=== PATIENT | male | born 1980 | race Caucasian/White ===

== ENCOUNTER → 2022-01-10 09:15 | Outpatient (BNVA) | payer OTHER, SELFPAY | PROVIDERS: Referring Provider Emergency Medicine Emergency Medical Services; Visit Provider Orthopaedic Surgery | DX: M54.50 Low back pain, unspecified (principal) | CPT/HCPCS: 72110 ==

== ENCOUNTER 2024-03-06 10:42 | Emergency (ER) | payer OTHER, SELFPAY ==
[2024-03-06 10:49] VITALS: BMI 37.1
[2024-03-06 10:51] VITALS: BP 134/87; PULSE 85; RESP 18; TEMP 36.7; O2SAT 96
--- NOTE | 2024-03-06 10:54 | ECG_ITS ---
[facility] Test Date: 2024-03-06 Pat Name: Chico Resendez Department: Room: Gender: Male [employer] Marker: : 1980 Requested By: Dipak York Order Number: [id number] [place] MD: Elise Zavaleta M.D. Measurements Intervals [place] Rate: 86 P: 17 AK: 155 QRS: -48 QRSD: 92 T: 12 QT: 367 QTc: 441 Interpretive Statements SINUS RHYTHM INCOMPLETE RIGHT BUNDLE BRANCH BLOCK [90+ ms QRS DURATION, TERMINAL R IN V1/V2, 40+ ms S IN I/aVL/V4/V5/V6] LEFT ANTERIOR FASCICULAR BLOCK [QRS AXIS <= -45, QR IN I, RS IN II] POSSIBLE ANTERIOR MYOCARDIAL INFARCTION , OF INDETERMINATE AGE [30 ms Q WAVE IN V3/V4, OR R < 0.2 mV IN V4] No previous ECG available for comparison Electronically Signed On 03-06-2024 23:55:04 CDT by Elise Zavaleta M.D. [id number]
--- NOTE | 2024-03-06 10:54 | XR_ITS ---
WS: [id number] Portable AP upright chest, 03/06/2024 Clinical Data: Chest pain Comparison: None. Findings: No nodules, masses or effusions are seen. The heart is normal. The pulmonary vascularity is not increased. No pneumonia or pneumothorax is seen. XR/XR chest 1V portable [id number] Impression: Negative chest.
--- NOTE | 2024-03-06 10:55 | W.ED.CHESTPA ---
HPI - Chest Pain General: Chief Complaint: Chest Pain Stated Complaint: chest pain, sob Time Seen by Provider: 03/06/24 10:54 Source: patient Mode of arrival: ambulatory History of Present Illness: 44-year-old male presents emergency room complaining of chest pain. States has had intermittently for the last couple of weeks has been getting progressively worse. He has a strong family history of heart disease as well. Non-smoker not diabetic. He had an episode of chest pain yesterday EMS was called reportedly had a normal EKG the patient declined transfer for further evaluation. This morning when he woke up he was still having chest pain and has worsened so he came to the emergency room. With the chest pain he has shortness of breath some diaphoresis radiation from the left side of the chest into the shoulder and arm MD complaint: chest pain Onset (ago): week(s) Timing of current episode: episodic Prior episodes: Yes Onset: during rest Pain location: left chest Pain radiation: left arm and left shoulder Severity: moderate Quality: tightness and heaviness Relieving factors: nothing Exacerbating factors: nothing Associated symptoms: Reports diaphoresis and nausea; Deny abdominal pain, dyspnea, fever(s), leg edema, palpitations, sense of impending doom, syncope or vomiting Treatment prior to arrival: none Review of Systems Const: Reports: diaphoresis; Denies: fever(s) or chills Card: Reports: chest pain; Denies: palpitations or syncope Resp: Denies: dyspnea GI: Reports: nausea; Denies: abdominal pain or vomiting : Denies: dysuria, urinary frequency or urinary urgency Musc: Denies: neck pain or back pain Skin/Breast: Denies: rash [facility] ED PFSH: Medical History Lumbar stenosis with neurogenic claudication Social History Smoking and tobacco/nicotine status: never used tobacco/nicotine Physical Exam Const: COMMON NORMALS: no acute distress GENERAL APPEARANCE: cooperative and comfortable ORIENTATION/CONSCIOUSNESS: Yes awake, Yes oriented to person, Yes oriented to place and Yes oriented to time HENMT: COMMON NORMALS: normocephalic, atraumatic and hearing grossly normal bilaterally HEAD & SCALP: normocephalic and atraumatic Resp: COMMON NORMALS: normal respiratory effort, No retractions, No use of accessory muscles and clear to auscultation bilaterally AUSCULTATION: clear to auscultation bilaterally Cardio: COMMON NORMALS: regular rate, regular rhythm and No murmurs present (Cardio) RATE: regular rate RHYTHM: regular rhythm GI: COMMON NORMALS: Soft to palpation and No hepatosplenomegaly present AUSCULTATION: Yes normoactive bowel sounds PALPATION: Yes Soft to palpation, No Tenderness to palpation present (GI), No Guarding due to palpation present (GI) and Yes No hepatosplenomegaly present Extremity: COMMON NORMALS: normal to inspection, capillary refill normal, no clubbing, cyanosis or edema, no calf tenderness and no pedal edema Neuro: SENSORIUM/ORIENTATION: Yes oriented to person, Yes oriented to place and Yes oriented to time Skin: COMMON NORMALS: no rashes or lesions noted GENERAL SKIN EXAM: no rashes or lesions noted Course Vital Signs: Vital signs: Vital Signs Temperature 98.0 F 03/06/24 10:51 Pulse Rate 80 03/06/24 14:30 Respiratory Rate 18 03/06/24 10:51 Blood Pressure 125/88 03/06/24 14:30 Pulse Oximetry 95 03/06/24 14:30 Oxygen Delivery Me thod Room Air 03/06/24 13:30 MDM - Chest Pain Medical Decision Making Labs and imaging reviewed EKG does not show any acute changes. The cardiac enzymes are trending negative. Will discharge patient home with Imdur 30 mg daily baby aspirin daily. Set up for a stress test as an outpatient. Medical Records I reviewed the patient's medical records. Lab Data I reviewed the patient's lab results. 03/06/24 11:04 03/06/24 11:42 Radiology Impressions Chest X-Ray 03/06/24 10:54 Impression: Negative chest. Laboratory Results WBC 7.98 10^3/uL (3.29-11.43) 03/06/24 11:04 RBC 4.88 10^6/uL (3.85-5.65) 03/06/24 11:04 Hgb 14.80 g/dL (11.27-16.99) 03/06/24 11:04 Hct 45.0 % (37-53) 03/06/24 11:04 MCV 92.2 fl (82-101) 03/06/24 11:04 MCH 30.3 pg (27-33) 03/06/24 11:04 MCHC 32.9 g/dL (30-55) 03/06/24 11:04 RDW 13.0 % (12.1-15.1) 03/06/24 11:04 Plt Count 256 10^3/cmm (157-399) 03/06/24 11:04 MPV 10.7 fL (7.4-10.4) H 03/06/24 11:04 Neut % (Auto) 55.8 % 03/06/24 11:04 Lymph % (Auto) 36.3 % 03/06/24 11:04 [place] % (Auto) 6.1 % 03/06/24 11:04 Eos % (Auto) 0.6 % 03/06/24 11:04 Baso % (Auto) 0.8 % 03/06/24 11:04 Neut # (Auto) 4.45 10^3/uL (1.8-7.7) 03/06/24 11:04 Lymph # (Auto) 2.9 10^3/uL (0.8-4.8) 03/06/24 11:04 [place] # (Auto) 0.5 10^3/uL (0.2-0.9) 03/06/24 11:04 Eos # (Auto) 0.1 10^3/uL (0.0-0.8) 03/06/24 11:04 Baso # (Auto) 0.1 10^3/uL (0.0-0.1) 03/06/24 11:04 Nucleated RBC % (auto) 0 % 03/06/24 11:04 Nucleated RBCs # 0.0 /100WBC 03/06/24 11:04 Sodium 137 mmol/L (136-145) 03/06/24 11:42 Potassium 4.2 mmol/L (3.5-5.1) 03/06/24 11:42 Chloride 98 mmol/L (98-107) 03/06/24 11:42 Carbon Dioxide 25 mmol/L (22-29) 03/06/24 11:42 Anion Gap 18.2 (5-19) 03/06/24 11:42 BUN 15 mg/dL (6-20) 03/06/24 11:42 Creatinine 0.7 mg/dL (0.7-1.2) 03/06/24 11:42 GFR Calculation 121.4 mL/min (90-130) 03/06/24 11:42 Glucose 84 mg/dL (65-115) 03/06/24 11:42 Calculated Osmolality 284 mOsm/kg (285-295) L 03/06/24 11:42 Calcium 9.4 mg/dL (8.5-10.5) 03/06/24 11:42 Total Bilirubin 0.4 mg/dL (0.15-1.2) 03/06/24 11:42 AST 26 U/L (0-40) 03/06/24 11:42 ALT 32 U/L (0-41) 03/06/24 11:42 Alkaline Phosphatase 63 U/L (40-130) 03/06/24 11:42 Troponin T Baseline 7 ng/L (0-15) 03/06/24 11:42 Troponin T 120 Minute 6.60 ng/L (0-15) 03/06/24 13:40 Delta Troponin T -0.40 ABS# (0-10) L 03/06/24 13:40 Total Protein 7.9 g/dL (6.6-8.7) 03/06/24 11:42 Albumin 4.6 g/dL (3.5-5.2) 03/06/24 11:42 Globulin 3.3 g/dL (1.3-4.6) 03/06/24 11:42 All radiology interpretation(s) finalized by discharge Discharge Plan Discharge Patient Disposition: Home Clinical Impression: Atypical chest pain Condition: Stable Prescriptions: New aspirin 81 mg tablet,delayed release (DR/EC) 81 mg PO DAILY Qty: 30 0RF isosorbide mononitrate 30 mg tablet extended release 24 hr 30 mg PO DAILY Qty: 30 0RF Discontinued sildenafil 100 mg Tablet See Rx Instructions .ROUTE .COMPLEX PRN (Reason: Erectile Dysfunction) Rx Instructions: TAKE 50MG (ONE-HALF TABLET) BY MOUTH EVERY WEEK NEEDED FOR ERECTILE DYSFUNCTION. TAKE 60 MINUTES PRIOR TO SEXUAL ACTIVITY. LIMIT 6 DOSES PER 30 DAYS. No Action mirtazapine 30 mg Tablet 15 - 30 mg PO BEDTIME PRN (Reason: Sleep) divalproex 500 mg Tablet Extended Release 24 Hr See Rx Instructions .ROUTE .COMPLEX Rx Instructions: TAKE 1 TABLET BY MOUTH IN THE MORNING AND 2 TABLETS AT BEDTIME FOR 60 DAY SFOR IRRITABILITY. fluoxetine 20 mg capsule 60 mg PO QAM prazosin 2 mg Capsule 4 mg PO BEDTIME naproxen 500 mg Tablet 500 mg PO BID PRN (Reason: Pain) simethicone 80 mg Tablet,Chewable 80 mg PO QID PRN (Reason: GAS DISCOMFORT) cholestyramine (with sugar) 4 gram powder in packet 1 ea PO BID PRN (Reason: CHOLESTEROL) varenicline 1 mg Tablet 1 mg PO BID AndroGel 20.25 mg/1.25 gram (1.62 %) Gel In Metered-Dose Pump 2 pump TOPICAL DAILY Rx Instructions: apply 2 pumps amount over max area of EACH upper arm and shoulder Discharge Orders: Discharge ED (Routine); Ordered 03/06/24 Ordered By: Dipak Moreno Referrals: Donte Zamarripa, DO [Primary Care Provider] - Discharge Diet: Usual diet Discharge Activity: Increase activity as tolerated Patient Instructions: Opioid Safety, Pain Management Activity Restrictions/Additional Instructions: Thank you for choosing [facility] for your healthcare needs today. Please realize this is an emergency room and that we are providing you with a medical screening exam and this may not be complete and all inclusive of all the testing and or work up that you may need to determine your ailment or severity of your illness. It is very important that you follow up as instructed or that you return to the Emergency Department should you have concerns or if your condition changes or worsens in any way. You were seen today with complaint of chest discomfort your cardiac enzymes and EKG did not show any acute abnormalities. Recommend to start baby aspirin daily we will start you on Imdur 1 tablet daily and set you up for an outpatient cardiac stress test Coding Level of Care Code ED Clay Burner for Emy Manzanares
[2024-03-06 11:14] LABS: Basophils # 0.1 10^3/uL (0.0-0.1); Basophils % 0.8 %; Eosinophils # 0.1 10^3/uL (0.0-0.8); Eosinophils % 0.6 %; Lymphocytes # 2.9 10^3/uL (0.8-4.8); Lymphocytes % 36.3 %; Mean Corpuscular HGB Conc 32.9 g/dL (30-55); Mean Corpuscular Hemoglobin 30.3 pg (27-33); Mean Corpuscular Volume 92.2 fl (82-101); Mean Platelet Volume 10.7 fL (7.4-10.4); Monocytes # 0.5 10^3/uL (0.2-0.9); Monocytes % 6.1 %; Neutrophils # 4.45 10^3/uL (1.8-7.7); Neutrophils % 55.8 %; Nucleated Red Blood Cells % 0 %; Platelet Count 256 10^3/cmm (157-399); Red Blood Count 4.88 10^6/uL (3.85-5.65); White Blood Count 7.98 10^3/uL (3.29-11.43)
[2024-03-06] MEDS: aspirin 81 mg Chew Tablet 324 MG PO (11:14)
--- NOTE | 2024-03-06 11:31 | PC.PHAR ---
PT IS [facility] FOR MED LIST. 03/16/24 11:30AM
[2024-03-06 12:00] VITALS: BP 135/93; PULSE 80; O2SAT 95
[2024-03-06 12:13] LABS: Troponin(5th) Baseline 7 ng/L (0-15)
[2024-03-06 12:17] LABS: Alanine Aminotransferase 32 U/L (0-41); Albumin Level 4.6 g/dL (3.5-5.2); Alkaline Phosphatase 63 U/L (40-130); Anion Gap 18.2 (5-19); Aspartate Amino Transferase 26 U/L (0-40); Blood Urea Nitrogen 15 mg/dL (6-20); Calcium 9.4 mg/dL (8.5-10.5); Carbon Dioxide 25 mmol/L (22-29); Chloride 98 mmol/L (98-107); Creatinine Clr Calc Pharmacy 149.2257; Globulin 3.3 g/dL (1.3-4.6); Glomerular Filtration Rate 121.4 mL/min (90-130); Glucose 84 mg/dL (65-115); Osmolality Calculated 284 mOsm/kg (285-295); Potassium 4.2 mmol/L (3.5-5.1); Sodium 137 mmol/L (136-145); Total Bilirubin 0.4 mg/dL (0.15-1.2); Total Protein 7.9 g/dL (6.6-8.7)
--- NOTE | 2024-03-06 12:54 | ECG_ITS ---
[facility] Test Date: 2024-03-06 Pat Name: Chico Resendez Department: Room: Gender: Male [employer]: : 1980 Requested By: Dipak York Order Number: [id number] [place] MD: Elise Zavaleta M.D. Measurements Intervals [place] Rate: 79 P: 25 FL: 152 QRS: -48 QRSD: 92 T: 5 QT: 381 QTc: 438 Interpretive Statements SINUS RHYTHM INCOMPLETE RIGHT BUNDLE BRANCH BLOCK [90+ ms QRS DURATION, TERMINAL R IN V1/V2, 40+ ms S IN I/aVL/V4/V5/V6] LEFT ANTERIOR FASCICULAR BLOCK [QRS AXIS <= -45, QR IN I, RS IN II] POSSIBLE ANTERIOR MYOCARDIAL INFARCTION , OF INDETERMINATE AGE [30 ms Q WAVE IN V3/V4, OR R < 0.2 mV IN V4] Compared to ECG 03/06/2024 10:45:08 No significant changes Electronically Signed On 03-07-2024 0:32:58 CDT by Elise Zavaleta M.D. [id number]
[2024-03-06 13:30] VITALS: BP 131/80; PULSE 77; O2SAT 94
[2024-03-06 14:30] VITALS: BP 125/88; PULSE 80; O2SAT 95
--- NOTE | 2024-03-06 17:10 | DCPLANNER ---
messaged heart care for er f/u
== END 2024-03-06 14:31 | disposition home or self-care (01) ==
PROVIDERS: Emergency Provider Family Medicine; PCP Emergency Medicine Emergency Medical Services
DX: R07.89 Other chest pain (principal)
CPT/HCPCS: 36415; 71045; 80053; 84484; 85025; 93005; 99285